=== PATIENT | female | born 1960 | race Caucasian/White ===

== ENCOUNTER 2016-05-05 16:12 | Emergency (ER) | payer OTHER ==
[2016-05-05 16:34] VITALS: BP 189/86
--- NOTE | 2016-05-05 16:57 | PHYS DOC ---
Past Medical History Past Medical History: Other Additional Past Medical Histor: ITP,IC Past Surgical History: Cholecystectomy, Hysterectomy, Tonsillectomy Alcohol Use: None Drug Use: None Adult General Chief Complaint Chief Complaint: SHOULDER INJURY [facility] HPI Patient is a 56 year old female presents emergency room with complaint of right shoulder pain for 6 days. Patient reports that, although work this past Saturday, a metal sheet began to fall and she reached out to catch it. She states this causes her subsequent pain to her right shoulder.. Patient reports she is right-hand dominant. She denies any history of previous shoulder injuries. She denies any history of bone forming disorders. Review of Systems Review of Systems Constitutional: Denies fever or chills [] Eyes: Denies change in visual acuity, redness, or eye pain [] HENT: Denies nasal congestion or sore throat [] Respiratory: Denies cough or shortness of breath [] Cardiovascular: No additional information not addressed in HPI [] GI: Denies abdominal pain, nausea, vomiting, bloody stools or diarrhea [] : Denies dysuria or hematuria [] Musculoskeletal: Denies back pain or joint pain [] Integument: Denies rash or skin lesions [] Neurologic: Denies headache, focal weakness or sensory changes [] Endocrine: Denies polyuria or polydipsia [] Allergies Allergies Allergies Coded Allergies Type Severity Reaction Last Updated Verified aspirin Allergy Intermediate ITP 05/05/16 Yes tolterodine Allergy Intermediate rash 05/05/16 Yes Sulfa (Sulfonamide Antibiotics) Adverse Reaction Mild diarrhea 05/05/16 Yes Tetracyclines Adverse Reaction Mild diarrhea 05/05/16 Yes codeine Adverse Reaction Mild vomiting 05/05/16 Yes erythromycin base Adverse Reaction Mild diarrhea 05/05/16 Yes floxacillin Adverse Reaction Mild abd pain 05/05/16 Yes fluconazole Adverse Reaction Mild abd pain 05/05/16 Yes Physical Exam Physical Exam Constitutional: Well developed, well nourished, no acute distress, non-toxic appearance. [] HENT: Normocephalic, atraumatic, bilateral external ears normal, oropharynx moist, no oral exudates, nose normal. [] Eyes: PERRLA, EOMI, conjunctiva normal, no discharge. [] Neck: Normal range of motion, no tenderness, supple, no stridor. [] Cardiovascular:Heart rate regular rhythm, no murmur [] Lungs & Thorax: Bilateral breath sounds clear to auscultation [] Abdomen: Bowel sounds normal, soft, no tenderness, no masses, no pulsatile masses. [] Skin: Warm, dry, no erythema, no rash. [] Back: No tenderness, no CVA tenderness. [] Extremities: Shoulder is without any obvious deformity or signs of injury. There is tender to palpation to the AC joint without palpable defect, deformity , instability or crepitus. There is also tenderness to palpation to the anterior lateral aspect of the shoulder in the deltoid muscles without palpable defect, deformity, instability or crepitus. Patient winces in pain with passive range of motion performed. There is no crepitation upon range of motion. Right upper extremity is neurovascularly intact with capillary refill less than 2 seconds. Neurologic: Alert and oriented X 3, normal motor function, normal sensory function, no focal deficits noted. [] Psychologic: Affect normal, judgement normal, mood normal. [] Current Patient Data Vital Signs Vital Signs Date Time Temp Pulse Resp B/P Pulse Ox O2 Delivery O2 Flow Rate FiO2 05/05/16 16:34 97.6 75 20 97 Room Air 97.6 EKG EKG [] Radiology/Procedures Radiology/Procedures 3 views of patient's right shoulder performed with adequate technique. There is evidence of a second-degree before meals separation. There is no evidence of fracture or dislocation. Course & Med Decision Making Course & Med Decision Making Pertinent Labs and Imaging studies reviewed. (See chart for details) [] Dragon Disclaimer Dragon Disclaimer This electronic medical record was generated, in whole or in part, using a voice recognition dictation system. Departure Departure Impression: Primary Impression: AC separation, type 2 Disposition: 01 HOME, SELF-CARE Condition: GOOD Patient Instructions: Arm Sling Use, [id number], Shoulder Separation Additional Instructions: 1. The x-rays of your shoulder show no evidence of broken bone or dislocation. 2. Review the discharge instructions provided for self-care and reasons to return to the emergency department. 3. Be sure to call Workmen's Comp. Saturday morning to schedule follow-up appointment. You will also want to talk to your employer. 4. Take the medication as prescribed. 5. Perform the arm rotations and rowing exercises 3 times a day as discussed. Scripts Hydrocodone/Apap 5-325 (Dalzell 5-325 Tablet)1 Each Tablet1 Tab PO PRN Q6HRS PRN PAIN #15 TAB Prov:DANILO PALACIOS 05/05/16 Problem Qualifiers Primary Impression: AC separation, type 2 Encounter type: initial encounter Laterality: right Qualified Code: S43.101A - Unspecified dislocation of right acromioclavicular joint, initial encounter DANILO PALACIOS May 05, 2016 16:57
[2016-05-05] MEDS ORDERED: HYDR-971 PO (17:37)
--- NOTE | 2016-05-09 13:39 | RAD ---
Right shoulder radiographs History: Pain after lifting injury 6 days ago. Comparison: None. Findings: AP internal rotation, AP external rotation, scapular Y-view of the right shoulder. No acute fracture is identified. The undersurface of the distal clavicle is noted to be superior to the superior surface of the acromion, compatible with type 3 AC dislocation. Mild glenohumeral degeneration is seen. Impression: Type III AC dislocation.
== END 2016-05-05 17:56 | disposition home or self-care (01) ==
LOC: ER 16:12
DX: S43.101A Unspecified dislocation of right acromioclavicular joint, initial encounter (principal); D69.3 Immune thrombocytopenic purpura; Z88.0 Allergy status to penicillin; Z88.2 Allergy status to sulfonamides; Z88.6 Allergy status to analgesic agent; Z88.1 Allergy status to other antibiotic agents; Z88.8 Allergy status to other drugs, medicaments and biological substances; W19.XXXA Unspecified fall, initial encounter; Y93.89 Activity, other specified; Y99.8 Other external cause status; Y92.89 Other specified places as the place of occurrence of the external cause
CPT/HCPCS: 73030; 99284

== ENCOUNTER 2016-11-09 10:33 | Inpatient (IN) | payer BC, OTHER ==
[~2016-11-09] VITALS: Ht 167.6 cm; Wt 83.0 kg
[~2016-11-09 10:33] MED LIST: HYDR-971 PO
[2016-11-09 11:00] LABS: BASO # 0.1 x10^3/uL (0.0-0.2); BASO % 1 % (0-3); EOS % 2 % (0-3); HEMATOCRIT 37.5 % (36.0-47.0); HEMOGLOBIN 12.5 g/dL (12.0-15.5); LYMPH # 2.1 x10^3/uL (1.0-4.8); LYMPH % 32 % (24-48); MEAN CORPUSCULAR HEMOGLOBIN 29 pg (25-35); MEAN CORPUSCULAR HGB CONC 33 g/dL (31-37); MEAN CORPUSCULAR VOLUME 87 fL (79-100); MONO % 9 % (0-9); NEUT % 56 % (31-73); PLATELET COUNT 130 x10^3/uL (140-400); RED BLOOD COUNT 4.32 x10^6/uL (3.50-5.40); RED CELL DISTRIBUTION WIDTH 13.5 % (11.5-14.5); WHITE BLOOD COUNT 6.6 x10^3/uL (4.0-11.0)
[2016-11-09] MEDS ORDERED: ASPIRIN CHEWABLE 81 MG TABLET. PO ONE (11:00)
--- NOTE | 2016-11-09 11:00 | PHYS DOC ---
Past Medical History Past Medical History: Other Additional Past Medical Histor: ITP,IC Past Surgical History: Cholecystectomy, Hysterectomy, Tonsillectomy Alcohol Use: None Drug Use: None Adult General Chief Complaint Chief Complaint: CHEST PAIN HPI HPI Patient is a 56 year old female presents to the emergency department with a history of chest pressure and tightness that started while she was at work today. Patient states she felt like her heart was fluttering. Patient states she has a history of HTN and had a BP med change in which she started today. 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 Patient does have nausea denies vomiting. Patient has a hx of ITP. Review of Systems Review of Systems Constitutional: Denies fever or chills [] Eyes: Denies change in visual acuity, redness, or eye pain [] HENT: Denies nasal congestion or sore throat [] Respiratory: Denies cough or shortness of breath [] Cardiovascular: No additional information not addressed in HPI [] GI: Denies abdominal pain, nausea, vomiting, bloody stools or diarrhea [] : Denies dysuria or hematuria [] Musculoskeletal: Denies back pain or joint pain [] Integument: Denies rash or skin lesions [] Neurologic: Denies headache, focal weakness or sensory changes [] Endocrine: Denies polyuria or polydipsia [] Current Medications Current Medications Allergies Allergies Allergies Coded Allergies Type Severity Reaction Last Updated Verified aspirin Allergy Intermediate ITP 05/05/16 Yes tolterodine Allergy Intermediate rash 05/05/16 Yes Sulfa (Sulfonamide Antibiotics) Adverse Reaction Mild diarrhea 05/05/16 Yes Tetracyclines Adverse Reaction Mild diarrhea 05/05/16 Yes codeine Adverse Reaction Mild vomiting 05/05/16 Yes erythromycin base Adverse Reaction Mild diarrhea 05/05/16 Yes floxacillin Adverse Reaction Mild abd pain 05/05/16 Yes fluconazole Adverse Reaction Mild abd pain 05/05/16 Yes Physical Exam Physical Exam Constitutional: Well developed, well nourished, no acute distress, non-toxic appearance. [] HENT: Normocephalic, atraumatic, bilateral external ears normal, oropharynx moist, no oral exudates, nose normal. [] Eyes: PERRLA, EOMI, conjunctiva normal, no discharge. [] Neck: Normal range of motion, no tenderness, supple, no stridor. [] Cardiovascular:Heart rate regular rhythm, no murmur [] Lungs & Thorax: Bilateral breath sounds clear to auscultation [] Skin: Warm, dry, no erythema, no rash. [] Back: No tenderness Extremities: No tenderness, no cyanosis, no clubbing, ROM intact, no edema. [] Neurologic: Alert and oriented X 3, normal motor function, normal sensory function, no focal deficits noted. [] Psychologic: Affect normal, judgement normal, mood normal. [] Current Patient Data Vital Signs Vital Signs Date Time Temp Pulse Resp B/P (MAP) Pulse Ox O2 Delivery O2 Flow Rate FiO2 11/09/16 10:41 98.0 65 12 179/108 (131) 100 Room Air 98.0 Lab Values Laboratory Tests Test 11/09/16 10:50 White Blood Count 6.6 x10^3/uL (4.0-11.0) Red Blood Count 4.32 x10^6/uL (3.50-5.40) Hemoglobin 12.5 g/dL (12.0-15.5) Hematocrit 37.5 % (36.0-47.0) Mean Corpuscular Volume 87 fL (79-100) Mean Corpuscular Hemoglobin 29 pg (25-35) Mean Corpuscular Hemoglobin Concent 33 g/dL (31-37) Red Cell Distribution Width 13.5 % (11.5-14.5) Platelet Count 130 x10^3/uL (140-400) L Neutrophils (%) (Auto) 56 % (31-73) Lymphocytes (%) (Auto) 32 % (24-48) Monocytes (%) (Auto) 9 % (0-9) Eosinophils (%) (Auto) 2 % (0-3) Basophils (%) (Auto) 1 % (0-3) Neutrophils # (Auto) 3.7 x10^3uL (1.8-7.7) Lymphocytes # (Auto) 2.1 x10^3/uL (1.0-4.8) Monocytes # (Auto) 0.6 x10^3/uL (0.0-1.1) Eosinophils # (Auto) 0.2 x10^3/uL (0.0-0.7) Basophils # (Auto) 0.1 x10^3/uL (0.0-0.2) Sodium Level 143 mmol/L (136-145) Potassium Level 4.2 mmol/L (3.5-5.1) Chloride Level 105 mmol/L (98-107) Carbon Dioxide Level 30 mmol/L (21-32) Anion Gap 8 (6-14) Blood Urea Nitrogen 17 mg/dL (7-20) Creatinine 0.7 mg/dL (0.6-1.0) Estimated GFR (Cockcroft-Gault) 86.6 BUN/Creatinine Ratio 24 (6-20) H Glucose Level 102 mg/dL (70-99) H Calcium Level 8.8 mg/dL (8.5-10.1) Total Bilirubin 0.3 mg/dL (0.2-1.0) Aspartate Amino Transferase (AST) 17 U/L (15-37) Alanine Aminotransferase (ALT) 22 U/L (14-59) Alkaline Phosphatase 99 U/L (46-116) Troponin I Quantitative < 0.017 ng/mL (0.000-0.055) Total Protein 7.2 g/dL (6.4-8.2) Albumin 3.9 g/dL (3.4-5.0) Albumin/Globulin Ratio 1.2 (1.0-1.7) Laboratory Tests 11/09/16 10:50 Laboratory Tests 11/09/16 10:50 EKG EKG EKG completed at 1037 with SR noted HR [address] Rivera[] Radiology/Procedures Radiology/Procedures [][facility] [address] [place] [address] IMAGING REPORT Signed PATIENT: YANELY RAMIREZ ACCOUNT: [id number] : 1960 LOCATION: ER AGE: 56 SEX: F EXAM STATUS: REG ER ORD. PHYSICIAN: EULALIA RUBIO APRN REASON: chest pain PROCEDURE: PORTABLE CHEST 1V INDICATION: chest pain COMPARISON: None. FINDINGS: Single view of chest obtained. No focal airspace consolidation. Mediastinal contour is mildly prominent in size but could be from portable technique. No gross osseous destructive lesion. IMPRESSION: No focal airspace consolidation or edema. DICTATED and SIGNED BY: VIOLA CAVAZOS MD DATE: 11/09/16 [id number] CC: EULALIA RUBIO APRN; CRISTINA CHAHAL ~ Course & Med Decision Making Course & Med Decision Making Pertinent Labs and Imaging studies reviewed. (See chart for details) Spoke with Dr. Arsh beverly in regards to the patient's troponin being normal CBC and chemistries normal EKG and chest x-ray normal. He is requesting a CTA of the chest to rule out a PE. He has also agreed for admission for serial troponins. Patient will also have a cardiology consult. Patient was provided with information as to being admitted into the hospital with a cardiology consult. Patient agrees with treatment regimens at this time. Patient refuses to have CTA of chest since it causes problems with her IC Dr Birmingham notified and agrees with VQ scan. Patient is aware of admission and agrees at this time. [] Dragon Disclaimer Dragon Disclaimer This electronic medical record was generated, in whole or in part, using a voice recognition dictation system. Departure Departure Impression: Primary Impression: Chest pain Disposition: ADMITTED INPATIENT Admitting Physician: Leo Birmingham Condition: STABLE Referrals: CRISTINA CHAHAL (PCP) EULALIA RUBIO APRN Nov 09, 2016 10:59
[2016-11-09] MEDS: NITROGLYCERIN SUBLINGUAL 0.4 MG BOTTLE OF 25. SL PRN ×2 (11:02→11:32)
[2016-11-09 11:13] LABS: CALCIUM 8.8 mg/dL (8.5-10.1); CREATININE 0.7 mg/dL (0.6-1.0); GFR 86.6; POTASSIUM 4.2 mmol/L (3.5-5.1)
[2016-11-09 11:19] LABS: ALBUMIN 3.9 g/dL (3.4-5.0); ALBUMIN/GLOBULIN RATIO 1.2 (1.0-1.7); TOTAL BILIRUBIN 0.3 mg/dL (0.2-1.0); TOTAL PROTEIN 7.2 g/dL (6.4-8.2)
--- NOTE | 2016-11-09 11:36 | RAD ---
INDICATION: chest pain COMPARISON: None. FINDINGS: Single view of chest obtained. No focal airspace consolidation. Mediastinal contour is mildly prominent in size but could be from portable technique. No gross osseous destructive lesion. IMPRESSION: No focal airspace consolidation or edema.
[2016-11-09] MEDS ORDERED: IOHEXOL 300 MG/ML 75 ML VIAL IV ONE (12:00)
[2016-11-09] MEDS ORDERED: CONTRAST GIVEN MC PRN (12:15)
[2016-11-09] MEDS ORDERED: NITROGLYCERIN SUBLINGUAL 0.4 MG BOTTLE OF 25. SL PRN (12:15)
[2016-11-09] MEDS ORDERED: fentaNYL PF VIAL 100 MCG/2 ML VIAL IV PRN (12:15)
--- NOTE | 2016-11-09 12:34 | ACF ---
Admit Criteria Forms Admit Criteria Forms Admit Criteria Forms CARDIOLOGY GRG Clinical Indications for Admission to Inpatient Care ( Place 'X' for any and all applicable criteria): Hospital admission is needed for appropriate care of the patient because of ANY ONE of the following (1): [ ] I. Hemodynamic instability as indicated by ALL of the following (1)(2)(3) (4)(5) [ ]a) Vital signs or other findings not as expected for chronic patient condition or baseline [ ]b) Instability indicated by ANY ONE of the following: [ ]i) Hypotension [ ]ii) Symptomatic Tachycardia unresponsive to treatment ( e.g., analgesia, fluids, sedation as indicated) [ ]iii) Inadequate perfusion indicated by ANY ONE of the following: [ ] 1) Lactic acidosis (> 2 mmol/L) [ ] 2) New abnormal capillary refill (> 3 seconds) [ ] 3) Reduced urine output [ ] 4) New altered mental status [ ]iv) Orthostatic vital sign changes unresponsive to treatment (e.g., fluids) [ ]v) IV inotropic or vasopressor medication required to maintain adequate blood pressure or perfusion [ ] II. Severe heart failure as indicated by ANY ONE of the following(17)(18) [ ]a) Respiratory distress [ ]b) Hypotension [ ]c) Anasarca (refractory to outpatient therapy) [ ]d) Cardiac arrhythmias of immediate concern [ ]e) Myocardial ischemia [ ] III. Cardiac arrhythmias or findings of immediate concern indicated by ANY ONE of the following (19)(20): [ ] a) Heart rhythms that are inherently dangerous or unstable indicated by ANY ONE of the following (21)(22)(23): [ ] i) Resuscitated ventricular fibrillation or cardiac arrest [ ] ii) Ventricular escape rhythm [ ] iii) Sustained ventricular tachycardia (30 seconds or more of ventricular rhythm at greater than 100 beats per minute) [ ] iv) Nonsustained ventricular tachycardia and ANY ONE of the following: [ ] 1) Suspected cardiac ischemia as cause or consequence of ventricular tachycardia [ ] 2) In setting of acute myocarditis [ ] b) Unstable cardiac conduction defects indicated by ANY ONE of the following(23)(24)(25) [ ] i) Type II second-degree atrioventricular block [ ]ii) Third-degree atrioventricular block [ ]iii) New-onset left bundle branch block with suspected myocardial ischemia [ ]c) Any heart rhythm and ANY ONE of the following (21)(22)(26)(27) (28) [ ] i) Continuous long-term ECG monitoring needed (e.g., initiation of drug requiring monitoring for more than 24 hours) [ ] ii) Patient has automatic implanted cardioverter defibrillator that is repeatedly firing, malfunctioning, or in need of immediate adjustment of settings beyond the scope of ambulatory or observation care [ ]d) Heart rhythms of concern due to ANY ONE of the following: [ ] i) Hypotension [ ] ii) Respiratory distress [ ] iii) Association with other significant symptoms (e.g., bradycardia with syncope or ongoing dizziness, supraventricular tachycardia with chest pain (14)(15)(17) [ ] IV. Monitoring for cardiac contusion beyond the scope of observation care needed [A](30)(31)(32) [ ] V. Surgical or device complication (e.g., valve replacement complication , pacemaker dysfunction) (35)(41)(44)(45)(46) [ ] . Inpatient palliative care needed. [B](49) Also use Inpatient Palliative Care Criteria [ ] VII. Nonbacterial thrombotic (marantic) endocarditis (36)(43)(47)(48) [X ] VIII. Cardiology condition, symptom, or finding for which emergency and observation care has failed or are not considered appropriate. [ ] IX. Acute valvular disease requiring inpatient as indicated by ANY ONE of the following (41) [ ]a) Acute valvular regurgitation (42) [ ]b) Noninfectious valvulitis (43) [ ]c) Obstructive valve thrombosis [ ]d) Paravalvular leak [ ]e) Other significant valvular disorder remaining after emergency or observation level of care (as appropriate) [ ]X. Pericardial disease requiring inpatient treatment as indicated by ANY ONE of the following (33)(34)(35)(36)(37) [ ]a) Suspected tamponade (38)(39)(40) [ ]b) Hemopericardium [ ]c) Other significant pericardial disorder remaining after emergency or observation level of care (as appropriate) [ ] XI. Cardiac ischemia beyond scope of emergency and observation care. [ ] XII. Hypertension requiring inpatient treatment as indicated by ANY ONE of the following (6)(7)(8) [ ]a) SBP greater than 220 mm Hg or DBP greater than 120 mmHg despite treatment [ ]b) SBP greater than 140 mm Hg or DBP greater than 100 mm Hg with evidence of acute end organ damage as indicated by ANY ONE of the following [ ] i) Encephalopathy [ ] ii) Acute renal failure as indicated by new onset of ANY ONE of the following (9)(10)(11)(12)(13) [ ]1) 3-fold rise in serum creatinine from baseline [ ]2) Serum creatinine greater than 4 mg/dL ( 354 micromoles/L) with acute rise greater than 0.5 mg/dL (44.2 micromoles/L) [ ]3) Reduction of more than 75% in estimated glomerular filtration rate from baseline [ ]4) Estimated glomerular filtration rate less than 35 mL/min/1.73m2 (0.59 mL/sec/1.73m2) in child up to 18 years of age [ ]5) Cessation of urine output indicated by ALL of the following [ ]A. Adequate volume status [ ]B. Inadequate urine output as indicated by ANY ONE of the following [ ]a. Urine output less than 0.3 mL/kg/hr for 24 hours [ ]b. Anuria (urine output less than 0.1 mL/kg/hr) for 12 hours [ ] iii) Aortic dissection [ ] iv) Myocardial Ischemia [ ] v) Left ventricular heart failure [ ]vi) Retinal Hemorrhage [ ]vii) Other significant finding [ ]c) Hypertension in child requiring inpatient treatment as indicated by ALL of the following(14)(15)(16) [ ] i) Outpatient treatment not effective, not available, or not appropriate [ ]ii) SBP or DBP greater than 95th percentile for age [ ]iii) Evidence of acute end organ damage as indicated by ANY ONE of the following [ ]1) Altered mental status [ ]2) Acute renal failure as indicated by new onset of ANY ONE of the following(9)(10)(11)(12)(13) [ ]A. 3-fold rise in serum creatinine from baseline [ ]B. Serum creatinine greater than 4 mg/dL (354 micromoles/L) with acute rise greater than 0.5 mg/dL (44.2 micromoles/L) [ ]C. Reduction of more than 75% in estimated glomerular filtration rate from baseline [ ]D. Estimated glomerular filtration rate less than 35 mL/min/1.73m2 (0.59 mL/sec/1.73m2) in child up to 18 years of age [ ]E. Cessation of urine output indicated by ALL of the following [ ]a. Adequate volume status [ ]b. Inadequate urine output as indicated by ANY ONE of the following [ ]i) Urine output less than 0.3 mL/kg/hr for 24 hours [ ]ii) Anuria ( urine output less than 0.1 mL/kg/hr) for 12 hours [ ]3) Severe headache [ ]4) Visual disturbance [ ]5) Retinal hemorrhage [ ]6) Other significant finding [ ]XIII. Complications of transplanted heart indicated by ANY ONE of the following(61): [ ]a) Acute graft rejection requiring inpatient management (eg, intravenous immunosuppression)(62)(63) [ ]b) Acute graft heart failure indicated by ANY ONE of the following(64): [ ]i) Hemodynamic instability [ ]ii) Cardiac arrhythmias of immediate concern [ ]iii) Pulmonary edema that is very severe (eg, mechanical ventilation needed, imminent or likely, need for 100% oxygen to keep oxygen saturation above 90%) [ ]iv) Pulmonary edema that is persistent as indicated by ALL of the following: [ ]1) New need for oxygen therapy to keep oxygen saturation above 90% (or increased FiO2 need from baseline) [ ]2) Has not improved sufficiently with emergency department or observation care IV diuretics or other heart failure treatments[E] [ ]v) Altered mental status that is severe or persistent [ ]vi) Increased creatinine (new on laboratory test) with reduction of more than 50% in estimated glomerular filtration rate from baseline [ ]vii) Progressively (ongoing) rising creatinine (known from past laboratory test) with reduction of more than 25% in estimated glomerular filtration rate from baseline [ ]viii) Acute renal failure [ ]ix) Acute peripheral ischemia (eg, examination shows pulseless, cool, mottled, or cyanotic extremity) [ ]x) Pulmonary artery catheter monitoring needed [ ]xi) Other sign or symptom of heart failure requiring inpatient treatment (ie, too severe or not responsive to outpatient and observation care treatment) [ ]c) Infection requiring inpatient management (eg, Hemodynamic instability, need for intravenous antimicrobial treatment)(66)(67)(68)(69)(70) [ ]d) Cardiac allograft vasculopathy requiring inpatient management ( eg evidence of cardiac ischemia)(71) [ ]e) Other complication of transplanted heart (eg, stroke, severe pulmonary hypertension, severe valvular dysfunction) requiring inpatient management(72) The original [employer] content created by [facility] has been revised. The portions of the content which have been revised are identified through the use of italic text or in bold, and [facility] [employer] has neither reviewed nor approved the modified material. All other unmodified content is copyright [employer] [facility]. Please see references footnoted in the original [employer] [facility] edition 2016 MOLLY SARMIENTO Nov 09, 2016 12:34
[2016-11-09 13:20] VITALS: BP 174/78
--- NOTE | 2016-11-09 14:36 | PDOC2 ---
JEANETTEGREGORY LOPEZ MARGARET 11/09/16 1436: CARDIAC CONSULT DATE OF CONSULT Date of Consult DATE: 11/09/16 TIME: 14:32 REASON FOR CONSULT Reason for Consult: Chest Pain REFERRING PHYSICIAN Referring Physician: Lesa Wick APRN SOURCE Source: Chart review, Patient HISTORY OF PRESENT ILLNESS HISTORY OF PRESENT ILLNESS This is a 56 yo female who presented with complaints of chest pressure. Patient reports pain began this morning while at work. 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 Began to feel "jittery" and had tightness/heaviness in her central chest. [place] nauseated. Hand tingling/numbness in bilateral hands. Slight fluttering in chest. Denies any SOA, dizziness, or diaphoresis. No worsening or relieving factors. Recently diagnosed with hypertension. Started on lisinopril; had persisted cough. Medications stopped 2 days ago. Started on Norvasc; first dose this morning. Has appointment with [facility] next Saturday to establish care. Pressure in chest still present; although much improved from earlier today. PAST MEDICAL HISTORY Cardiovascular: HTN Pulmonary: No pertinent hx GI: No pertinent hx Heme/Onc: No pertinent hx, Other (idiopathic thrombocytopenia purpura) Hepatobiliary: No pertinent hx Psych: Anxiety Rheumatologic: No pertinent hx Infectious disease: No pertinent hx ENT: No pertinent hx Renal/: Other (interstitial cystitis ) Endocrine: No pertinent hx Dermatology: No pertinent hx PAST SURGICAL HISTORY Past Surgical History: Hysterectomy FAMILY HISTORY Family History: Adopted SOCIAL HISTORY Smoke: No ALCOHOL: none Drugs: None Lives: Alone CURRENT MEDICATIONS CURRENT MEDICATIONS Current Medications Medications (Trade) Dose Ordered Sig/Ky Route PRN Reason Start Time Stop Time Status Last Admin Dose Admin Nitroglycerin (Nitrostat) 0.4 mg PRN Q5MIN PRN SL CHEST PAIN 11/09/16 11:00 11/09/16 11:32 Aspirin (Children'S Aspirin) 81 mg 1X ONCE PO 11/09/16 11:00 11/09/16 11:01 DC 11/09/16 11:01 ALLERGIES ALLERGIES: Coded Allergies: aspirin (Verified Allergy, Intermediate, ITP, 05/05/16) tolterodine (Verified Allergy, Intermediate, rash, 05/05/16) Sulfa (Sulfonamide Antibiotics) (Verified Adverse Reaction, Mild, diarrhea , 05/05/16) Tetracyclines (Verified Adverse Reaction, Mild, diarrhea, 05/05/16) codeine (Verified Adverse Reaction, Mild, vomiting, 05/05/16) erythromycin base (Verified Adverse Reaction, Mild, diarrhea, 05/05/16) floxacillin (Verified Adverse Reaction, Mild, abd pain, 05/05/16) fluconazole (Verified Adverse Reaction, Mild, abd pain, 05/05/16) lisinopril (Verified Adverse Reaction, Mild, 11/09/16) cough ROS Review of System 14 point ROS conducted with pertinent positives noted above in HPI. PHYSICAL EXAM General: Alert, Oriented X3, Cooperative, No acute distress HEENT: Atraumatic, Mucous membr. moist/pink Lungs: Normal air movement Heart: Regular rate, Normal S1, Normal S2, No murmurs Abdomen: Soft, No tenderness Extremities: No edema, Normal pulses Skin: No breakdown, No significant lesion Neuro: Normal speech, Sensation intact Psych/Mental Status: Mental status NL, Other (anxious ) VITALS VITALS Vital Signs Date Time Temp Pulse Resp B/P (MAP) Pulse Ox O2 Delivery O2 Flow Rate FiO2 11/09/16 13:20 98.0 55 18 174/78 (110) 98 Room Air 98.0 LABS Lab: Laboratory Tests Test 11/09/16 10:50 White Blood Count 6.6 x10^3/uL (4.0-11.0) Red Blood Count 4.32 x10^6/uL (3.50-5.40) Hemoglobin 12.5 g/dL (12.0-15.5) Hematocrit 37.5 % (36.0-47.0) Mean Corpuscular Volume 87 fL (79-100) Mean Corpuscular Hemoglobin 29 pg (25-35) Mean Corpuscular Hemoglobin Concent 33 g/dL (31-37) Red Cell Distribution Width 13.5 % (11.5-14.5) Platelet Count 130 x10^3/uL (140-400) Neutrophils (%) (Auto) 56 % (31-73) Lymphocytes (%) (Auto) 32 % (24-48) Monocytes (%) (Auto) 9 % (0-9) Eosinophils (%) (Auto) 2 % (0-3) Basophils (%) (Auto) 1 % (0-3) Neutrophils # (Auto) 3.7 x10^3uL (1.8-7.7) Lymphocytes # (Auto) 2.1 x10^3/uL (1.0-4.8) Monocytes # (Auto) 0.6 x10^3/uL (0.0-1.1) Eosinophils # (Auto) 0.2 x10^3/uL (0.0-0.7) Basophils # (Auto) 0.1 x10^3/uL (0.0-0.2) Sodium Level 143 mmol/L (136-145) Potassium Level 4.2 mmol/L (3.5-5.1) Chloride Level 105 mmol/L (98-107) Carbon Dioxide Level 30 mmol/L (21-32) Anion Gap 8 (6-14) Blood Urea Nitrogen 17 mg/dL (7-20) Creatinine 0.7 mg/dL (0.6-1.0) Estimated GFR (Cockcroft-Gault) 86.6 BUN/Creatinine Ratio 24 (6-20) Glucose Level 102 mg/dL (70-99) Calcium Level 8.8 mg/dL (8.5-10.1) Total Bilirubin 0.3 mg/dL (0.2-1.0) Aspartate Amino Transf (AST/SGOT) 17 U/L (15-37) Alanine Aminotransferase (ALT/SGPT) 22 U/L (14-59) Alkaline Phosphatase 99 U/L (46-116) Troponin I Quantitative < 0.017 ng/mL (0.000-0.055) Total Protein 7.2 g/dL (6.4-8.2) Albumin 3.9 g/dL (3.4-5.0) Albumin/Globulin Ratio 1.2 (1.0-1.7) ASSESSMENT/PLAN ASSESSMENT/PLAN 1. Chest pain, atypical 2 Malignant hypertension 3. Anxiety Recommendations Trend troponin check lipids Pressure likely related to combination of anxiety and significant blood pressure elevation, but with risk factor could consider MPI in am. Will d/w primary service center specialist. NPO p [place] Resume Norvasc. Will give extra dose now. Monitor to assess need for therapy titration Hydralazine PRN Problems: LYNDSEY FERGUSON MD 11/09/16 8549: CARDIAC CONSULT ALLERGIES ALLERGIES: Coded Allergies: aspirin (Verified Allergy, Intermediate, ITP, 05/05/16) tolterodine (Verified Allergy, Intermediate, rash, 05/05/16) Sulfa (Sulfonamide Antibiotics) (Verified Adverse Reaction, Mild, diarrhea , 05/05/16) Tetracyclines (Verified Adverse Reaction, Mild, diarrhea, 05/05/16) codeine (Verified Adverse Reaction, Mild, vomiting, 05/05/16) erythromycin base (Verified Adverse Reaction, Mild, diarrhea, 05/05/16) floxacillin (Verified Adverse Reaction, Mild, abd pain, 05/05/16) fluconazole (Verified Adverse Reaction, Mild, abd pain, 05/05/16) lisinopril (Verified Adverse Reaction, Mild, 11/09/16) cough ASSESSMENT/PLAN ASSESSMENT/PLAN Patient seen and examined. Agree with above nurse practitioner note. 56-year-old woman presenting with chest pressure in the setting of elevated blood pressure greater than 180 systolic. Normal cardiac exam. Given her age, family history and pain suggestive of cardiac origin we will obtain a myocardial perfusion study to rule out any significant pathology. Thank you for this consultation. Further recommendations pending stress testing. Problems: GREGORY REID APRN Nov 09, 2016 14:36 LYNDSEY FERGUSON MD Nov 09, 2016 18:19
--- NOTE | 2016-11-09 14:40 | RAD ---
Indication chest pain and tightness. A ventilation perfusion lung scan was performed. The study is correlated with a single view of the chest obtained the same day. There are to evaluate ventilation 8 mCi of xenon 133 was administered. To evaluate perfusion 6.3 mCi of technetium labeled MAA was administered. On the ventilation study no significant anomaly is seen. There is no significant air trapping. On the perfusion study no definite V/Q mismatch or significant profusion anomaly is apparent. The study is considered low probability for pulmonary embolus. IMPRESSION: Low probability VQ scan for pulmonary embolus
--- NOTE | 2016-11-09 15:25 | EKG ---
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
[2016-11-09 15:30] VITALS: BP 148/83
[2016-11-09] MEDS ORDERED: amLODIPine BESYLATE 5 MG TABLET PO ONE (16:00)
[2016-11-09] MEDS ORDERED: hydrALAZINE 20 MG/ML VIAL. IVP PRN ×2 (16:00→19:45)
[2016-11-09] MEDS ORDERED: ALPRAZolam 0.25 MG TABLET PO ONE (17:00)
[2016-11-09] MEDS ORDERED: VALERIAN ROOT 100 MG PO SCH (17:00)
[2016-11-09] MEDS ORDERED: DIPH25CA58 PO ×2 (17:03)
[2016-11-09] MEDS ORDERED: VALE100C PO (17:03)
[2016-11-09] MEDS ORDERED: AMLO5TAB2 PO (17:03)
[2016-11-09] MEDS ORDERED: OXYB5TAB7 PO (17:03)
[2016-11-09] MEDS ORDERED: METH1TAB2 PO (17:03)
[2016-11-09] MEDS ORDERED: GABA-586 PO (17:03)
[2016-11-09] MEDS ORDERED: TRAM50TA PO (17:03)
[2016-11-09] MEDS ORDERED: MELO15TA23 PO (17:03)
[2016-11-09] MEDS ORDERED: ACETAMINOPHEN 325 MG TABLET. PO PRN ×2 (18:45→19:45)
--- NOTE | 2016-11-09 19:29 | PDOC1 ---
History and Physical Past Medical History Cardiovascular: HTN Pulmonary: No pertinent hx GI: No pertinent hx Heme/Onc: No pertinent hx, Other (idiopathic thrombocytopenia purpura) Hepatobiliary: No pertinent hx Psych: Anxiety Rheumatologic: No pertinent hx Infectious disease: No pertinent hx ENT: No pertinent hx Renal/: Other (interstitial cystitis ) Endocrine: No pertinent hx Dermatology: No pertinent hx Past Surgical History Past Surgical History: Hysterectomy Family History Family History: Adopted Social History Smoke: No ALCOHOL: none Drugs: None Current Problem List Problem List Problems Medical Problems: (1) Chest pain Status: Acute Current Medications Current Medications Current Medications Medications (Trade) Dose Ordered Sig/Ky Start Time Stop Time Status Last Admin Dose Admin Acetaminophen (Tylenol) 650 mg PRN Q6HRS PRN 11/09/16 18:45 11/09/16 18:44 650 MG Alprazolam (Xanax) 0.25 mg 1X ONCE 11/09/16 17:00 11/09/16 17:01 DC 11/09/16 17:13 0.25 MG Amlodipine Besylate (Norvasc) 5 mg DAILY 11/10/16 09:00 UNV Aspirin (Children'S Aspirin) 81 mg 1X ONCE 11/09/16 11:00 11/09/16 11:01 DC 11/09/16 11:01 81 MG Diphenhydramine HCl (Benadryl) 25 mg DAILY 11/10/16 09:00 Fentanyl Citrate (Fentanyl 2ml Vial) 50 mcg PRN Q1HR PRN 11/09/16 12:15 11/10/16 12:14 Gabapentin (Neurontin) 300 mg QHS 11/09/16 21:00 Hydralazine HCl (Apresoline) 10 mg PRN Q4HRS PRN 11/09/16 16:00 Info (Do NOT chart on this entry -- for MONITORING) 1 each PRN DAILY PRN 11/09/16 12:15 11/11/16 12:14 Iohexol (Omnipaque 300 Mg/ml) 75 ml 1X ONCE 11/09/16 12:00 11/09/16 12:01 DC Meloxicam (Mobic) 15 mg DAILY 11/10/16 09:00 Nitroglycerin (Nitrostat) 0.4 mg PRN Q5MIN PRN 11/09/16 12:15 11/10/16 12:14 UNV Non-Formulary Medication 100 mg PRN 11/09/16 17:00 UNV Oxybutynin Chloride (Ditropan) 5 mg DAILY 11/10/16 09:00 Tramadol HCl (Ultram) 50 mg BID 11/09/16 21:00 Allergies Allergies Allergies Coded Allergies Type Severity Reaction Last Updated Verified aspirin Allergy Intermediate ITP 05/05/16 Yes tolterodine Allergy Intermediate rash 05/05/16 Yes Sulfa (Sulfonamide Antibiotics) Adverse Reaction Mild diarrhea 05/05/16 Yes Tetracyclines Adverse Reaction Mild diarrhea 05/05/16 Yes codeine Adverse Reaction Mild vomiting 05/05/16 Yes erythromycin base Adverse Reaction Mild diarrhea 05/05/16 Yes floxacillin Adverse Reaction Mild abd pain 05/05/16 Yes fluconazole Adverse Reaction Mild abd pain 05/05/16 Yes lisinopril Adverse Reaction Mild 11/09/16 Yes ROS Review of System CONSTITUTIONAL: No fever or chills EYES: No recent changes SKIN: No rash or itching CARDIOVASCULAR: No chest pain, syncope, palpitations, or edema RESPIRATORY: No SOB or cough GASTROINTESTINAL: No nausea, vomiting or abdominal pain NEUROLOGICAL: No headaches or weakness ENDOCRINE: No cold or heat intolerance GENITOURINARY: No urgency or frequency of urination MUSCULOSKELETAL: No back pain or joint pain LYMPHATICS: No enlarged lymph nodes PSYCHIATRIC: No anxiety or depression Physical Exam Physical Exam GEN.: No apparent distress. Alert and oriented. HEENT: Head is normocephalic, atraumatic NECK: Supple. LUNGS: Clear to auscultation. HEART: RRR, S1, S2 present. Peripheral pulses intact ABDOMEN: Soft, nontender. Positive bowel sounds. EXTREMITIES: Without any cyanosis. NEUROLOGIC: Normal speech, normal tone PSYCHIATRIC: Normal affect, normal mood. SKIN: No ulcerations Vitals Vitals Vital Signs Date Time Temp Pulse Resp B/P (MAP) Pulse Ox O2 Delivery O2 Flow Rate FiO2 11/09/16 17:14 63 148/83 11/09/16 15:30 97.9 18 97 Room Air 97.9 Labs Labs Laboratory Tests Test 11/09/16 10:50 White Blood Count 6.6 x10^3/uL (4.0-11.0) Red Blood Count 4.32 x10^6/uL (3.50-5.40) Hemoglobin 12.5 g/dL (12.0-15.5) Hematocrit 37.5 % (36.0-47.0) Mean Corpuscular Volume 87 fL (79-100) Mean Corpuscular Hemoglobin 29 pg (25-35) Mean Corpuscular Hemoglobin Concent 33 g/dL (31-37) Red Cell Distribution Width 13.5 % (11.5-14.5) Platelet Count 130 x10^3/uL (140-400) Neutrophils (%) (Auto) 56 % (31-73) Lymphocytes (%) (Auto) 32 % (24-48) Monocytes (%) (Auto) 9 % (0-9) Eosinophils (%) (Auto) 2 % (0-3) Basophils (%) (Auto) 1 % (0-3) Neutrophils # (Auto) 3.7 x10^3uL (1.8-7.7) Lymphocytes # (Auto) 2.1 x10^3/uL (1.0-4.8) Monocytes # (Auto) 0.6 x10^3/uL (0.0-1.1) Eosinophils # (Auto) 0.2 x10^3/uL (0.0-0.7) Basophils # (Auto) 0.1 x10^3/uL (0.0-0.2) Sodium Level 143 mmol/L (136-145) Potassium Level 4.2 mmol/L (3.5-5.1) Chloride Level 105 mmol/L (98-107) Carbon Dioxide Level 30 mmol/L (21-32) Anion Gap 8 (6-14) Blood Urea Nitrogen 17 mg/dL (7-20) Creatinine 0.7 mg/dL (0.6-1.0) Estimated GFR (Cockcroft-Gault) 86.6 BUN/Creatinine Ratio 24 (6-20) Glucose Level 102 mg/dL (70-99) Calcium Level 8.8 mg/dL (8.5-10.1) Total Bilirubin 0.3 mg/dL (0.2-1.0) Aspartate Amino Transf (AST/SGOT) 17 U/L (15-37) Alanine Aminotransferase (ALT/SGPT) 22 U/L (14-59) Alkaline Phosphatase 99 U/L (46-116) Troponin I Quantitative < 0.017 ng/mL (0.000-0.055) Total Protein 7.2 g/dL (6.4-8.2) Albumin 3.9 g/dL (3.4-5.0) Albumin/Globulin Ratio 1.2 (1.0-1.7) Thyroid Stimulating Hormone (TSH) 0.025 uIU/mL (0.358-3.74) Laboratory Tests Test 11/09/16 10:50 White Blood Count 6.6 x10^3/uL (4.0-11.0) Red Blood Count 4.32 x10^6/uL (3.50-5.40) Hemoglobin 12.5 g/dL (12.0-15.5) Hematocrit 37.5 % (36.0-47.0) Mean Corpuscular Volume 87 fL (79-100) Mean Corpuscular Hemoglobin 29 pg (25-35) Mean Corpuscular Hemoglobin Concent 33 g/dL (31-37) Red Cell Distribution Width 13.5 % (11.5-14.5) Platelet Count 130 x10^3/uL (140-400) Neutrophils (%) (Auto) 56 % (31-73) Lymphocytes (%) (Auto) 32 % (24-48) Monocytes (%) (Auto) 9 % (0-9) Eosinophils (%) (Auto) 2 % (0-3) Basophils (%) (Auto) 1 % (0-3) Neutrophils # (Auto) 3.7 x10^3uL (1.8-7.7) Lymphocytes # (Auto) 2.1 x10^3/uL (1.0-4.8) Monocytes # (Auto) 0.6 x10^3/uL (0.0-1.1) Eosinophils # (Auto) 0.2 x10^3/uL (0.0-0.7) Basophils # (Auto) 0.1 x10^3/uL (0.0-0.2) Sodium Level 143 mmol/L (136-145) Potassium Level 4.2 mmol/L (3.5-5.1) Chloride Level 105 mmol/L (98-107) Carbon Dioxide Level 30 mmol/L (21-32) Anion Gap 8 (6-14) Blood Urea Nitrogen 17 mg/dL (7-20) Creatinine 0.7 mg/dL (0.6-1.0) Estimated GFR (Cockcroft-Gault) 86.6 BUN/Creatinine Ratio 24 (6-20) Glucose Level 102 mg/dL (70-99) Calcium Level 8.8 mg/dL (8.5-10.1) Total Bilirubin 0.3 mg/dL (0.2-1.0) Aspartate Amino Transf (AST/SGOT) 17 U/L (15-37) Alanine Aminotransferase (ALT/SGPT) 22 U/L (14-59) Alkaline Phosphatase 99 U/L (46-116) Troponin I Quantitative < 0.017 ng/mL (0.000-0.055) Total Protein 7.2 g/dL (6.4-8.2) Albumin 3.9 g/dL (3.4-5.0) Albumin/Globulin Ratio 1.2 (1.0-1.7) Thyroid Stimulating Hormone (TSH) 0.025 uIU/mL (0.358-3.74) VTE Prophylaxis Ordered VTE Prophylaxis Devices: No VTE Pharmacological Prophylaxi: No ZAIRE PHAN MD Nov 09, 2016 19:29
[2016-11-09 19:35] VITALS: BP 140/89
[2016-11-09] MEDS ORDERED: ONDANSETRON PF 4 MG/2 ML VIAL. IV PRN (19:45)
[2016-11-09] MEDS ORDERED: ALBUTEROL SULFATE 2.5 MG/3 ML NEBU. NEB PRN (19:45)
[2016-11-09] MEDS: HYDROcodone/APAP 5/325MG 1 TAB TABLET PO PRN (20:06)
[2016-11-09] MEDS: GABAPENTIN 300 MG CAPSULE. PO SCH (20:06)
[2016-11-09] MEDS: traMADol 50 MG TABLET PO SCH (20:06)
[2016-11-09] MEDS ORDERED: [UNRECOGNIZED DRUG - OTHER] PO SCH (21:00)
[2016-11-09] MEDS ORDERED: METHENAMINE PO SCH (21:00)
[2016-11-09] MEDS: PENTOSAN POLYSULFATE SODIUM 100 MG CAPSULE. PO SCH (21:00)
[2016-11-09] MEDS ORDERED: SODIUM PHOSPHATE PO SCH (21:00)
[2016-11-09] MEDS ORDERED: HYOSCYAMINE PO SCH (21:00)
[2016-11-09] MEDS ORDERED: PHENYL SALICYLATE PO SCH (21:00)
--- NOTE | 2016-11-09 21:33 | HP ---
ADMIT DATE: 11/09/2016 TIME: 04:30 p.m. CHIEF COMPLAINT: Chest pressure. HISTORY OF PRESENT ILLNESS: A 56-year-old female patient with a recent diagnosis of hypertension, who presented to the ER with complaints of chest pressure. 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 This morning is more stressful at work. The patient felt jittery and went to pharmacy, who checked her blood pressure, which is significantly elevated. The patient continued to have chest pressure with tingling and numbness in the right upper extremity. Denies any nausea, vomiting, or any syncope. She was diagnosed with hypertension and started on lisinopril; however, the patient continued to have some cough, so recently, it was changed to amlodipine. At the time of my examination, the patient denies any chest pressure; however, the patient still has some tingling in the upper extremities, which is getting better with ____. PAST MEDICAL HISTORY: Hypertension, idiopathic thrombocytopenic purpura, and interstitial cystitis. PAST SURGICAL HISTORY: Hysterectomy. PERSONAL HISTORY: No smoking, no alcohol, and no drug abuse. FAMILY HISTORY: Unknown as the patient is adopted. ALLERGIES, REVIEW OF SYSTEMS, AND PHYSICAL EXAMINATION: Please see my electronic H and P. LABORATORY DATA: Chemistry within normal limits. First set of troponins is less than 0.01. TSH is 0.25. CBC within normal limits. IMAGING STUDIES: CT scan is negative for any PE. Chest x-ray personally reviewed, no acute findings seen. EKG: Normal sinus rhythm, no acute ST-T-wave changes noted. No prior EKGs present for comparison. ASSESSMENT: 1. Chest pressure, possible differentials ____ versus anxiety versus gastroesophageal reflux disease versus uncontrolled hypertension. 2. Uncontrolled hypertension. 3. Possible anxiety. PLAN: 1. P.r.n. Ativan for anxiety. 2. Cardiology consultation. 3. Two more sets of troponins. 4. Monitor the patient on telemetry floor. 5. As the patient tried nitroglycerin in the ER, which did not help her, rather she got headaches. 6. Echocardiogram or stress test. 7. Continue amlodipine. 8. Continue as-needed hydralazine for systolic blood pressure more than 180. Anticipated discharge based on the patient's symptoms and further Cardiology recommendations. Plan discussed with the patient, who agrees with the current plan. ZAIRE PHAN MD DR: Olga JOB#: [id number] / [id number]
[2016-11-09] MEDS ORDERED: PENTOSAN POLYSULFATE SODIUM 100 MG CAPSULE. PO ONE (22:00)
[2016-11-09 23:52] VITALS: BP 107/49
[2016-11-10 02:53] LABS: BASO # 0.1 x10^3/uL (0.0-0.2); BASO % 1 % (0-3); EOS % 4 % (0-3); HEMATOCRIT 36.5 % (36.0-47.0); HEMOGLOBIN 12.3 g/dL (12.0-15.5); LYMPH % 42 % (24-48); MEAN CORPUSCULAR HEMOGLOBIN 30 pg (25-35); MEAN CORPUSCULAR HGB CONC 34 g/dL (31-37); MEAN CORPUSCULAR VOLUME 88 fL (79-100); MONO % 9 % (0-9); NEUT % 44 % (31-73); PLATELET COUNT 137 x10^3/uL (140-400); RED BLOOD COUNT 4.16 x10^6/uL (3.50-5.40); RED CELL DISTRIBUTION WIDTH 13.5 % (11.5-14.5); WHITE BLOOD COUNT 7.2 x10^3/uL (4.0-11.0)
[2016-11-10 03:14] LABS: GFR 86.6
[2016-11-10 03:17] LABS: CREATININE 0.7 mg/dL (0.6-1.0); POTASSIUM 3.7 mmol/L (3.5-5.1)
[2016-11-10 03:40] VITALS: BP 136/85
[2016-11-10 03:41] LABS: CHOLESTEROL/HDL RATIO 3.3
[2016-11-10] MEDS: PENTOSAN POLYSULFATE SODIUM 100 MG CAPSULE. PO SCH ×3 (07:30→15:42)
[2016-11-10 07:45] VITALS: BP 150/82
[2016-11-10] MEDS ORDERED: amLODIPine BESYLATE 5 MG TABLET PO SCH (09:00)
[2016-11-10] MEDS: diphenhydrAMINE HCL 25 MG CAPSULE PO SCH (09:27)
[2016-11-10] MEDS: traMADol 50 MG TABLET PO SCH ×2 (09:27→21:14)
[2016-11-10] MEDS: OXYBUTYNIN CHLORIDE 5 MG TABLET PO SCH (09:28)
[2016-11-10] MEDS: amLODIPine BESYLATE 10 MG TABLET PO SCH (09:28)
[2016-11-10] MEDS: MELOXICAM 7.5 MG TABLET PO SCH (09:29)
[2016-11-10] MEDS ORDERED: OMEP20TA63 PO ×2 (09:42)
--- NOTE | 2016-11-10 09:59 | PDOC ---
CARDIO Progress Notes Date and Time Date of Service 11/10/2016 Time of Evaluation 0930 Subjective Subjective: No Chest Pain, No shortness of breath, No Palpitations, No Dizziness, Other (feels better overnight) Vitals Vitals Vital Signs Date Time Temp Pulse Resp B/P (MAP) Pulse Ox O2 Delivery O2 Flow Rate FiO2 11/10/16 09:28 59 150/82 11/10/16 09:27 98 Room Air 11/10/16 07:45 97.6 16 97.6 Weight Weight [ ] Input and Output Intake and Output Intake and Output 11/10/16 06:59 Intake Total 500 ml Balance 500 ml Intake Oral 500 ml # Voids 2 Laboratory Labs Laboratory Tests Test 11/09/16 10:50 11/09/16 18:35 11/10/16 02:20 White Blood Count 6.6 x10^3/uL (4.0-11.0) 7.2 x10^3/uL (4.0-11.0) Red Blood Count 4.32 x10^6/uL (3.50-5.40) 4.16 x10^6/uL (3.50-5.40) Hemoglobin 12.5 g/dL (12.0-15.5) 12.3 g/dL (12.0-15.5) Hematocrit 37.5 % (36.0-47.0) 36.5 % (36.0-47.0) Mean Corpuscular Volume 87 fL (79-100) 88 fL (79-100) Mean Corpuscular Hemoglobin 29 pg (25-35) 30 pg (25-35) Mean Corpuscular Hemoglobin Concent 33 g/dL (31-37) 34 g/dL (31-37) Red Cell Distribution Width 13.5 % (11.5-14.5) 13.5 % (11.5-14.5) Platelet Count 130 x10^3/uL (140-400) 137 x10^3/uL (140-400) Neutrophils (%) (Auto) 56 % (31-73) 44 % (31-73) Lymphocytes (%) (Auto) 32 % (24-48) 42 % (24-48) Monocytes (%) (Auto) 9 % (0-9) 9 % (0-9) Eosinophils (%) (Auto) 2 % (0-3) 4 % (0-3) Basophils (%) (Auto) 1 % (0-3) 1 % (0-3) Neutrophils # (Auto) 3.7 x10^3uL (1.8-7.7) 3.2 x10^3uL (1.8-7.7) Lymphocytes # (Auto) 2.1 x10^3/uL (1.0-4.8) 3.0 x10^3/uL (1.0-4.8) Monocytes # (Auto) 0.6 x10^3/uL (0.0-1.1) 0.7 x10^3/uL (0.0-1.1) Eosinophils # (Auto) 0.2 x10^3/uL (0.0-0.7) 0.3 x10^3/uL (0.0-0.7) Basophils # (Auto) 0.1 x10^3/uL (0.0-0.2) 0.1 x10^3/uL (0.0-0.2) Sodium Level 143 mmol/L (136-145) 144 mmol/L (136-145) Potassium Level 4.2 mmol/L (3.5-5.1) 3.7 mmol/L (3.5-5.1) Chloride Level 105 mmol/L (98-107) 106 mmol/L (98-107) Carbon Dioxide Level 30 mmol/L (21-32) 31 mmol/L (21-32) Anion Gap 8 (6-14) 7 (6-14) Blood Urea Nitrogen 17 mg/dL (7-20) 16 mg/dL (7-20) Creatinine 0.7 mg/dL (0.6-1.0) 0.7 mg/dL (0.6-1.0) Estimated GFR (Cockcroft-Gault) 86.6 86.6 BUN/Creatinine Ratio 24 (6-20) Glucose Level 102 mg/dL (70-99) 109 mg/dL (70-99) Calcium Level 8.8 mg/dL (8.5-10.1) 9.0 mg/dL (8.5-10.1) Total Bilirubin 0.3 mg/dL (0.2-1.0) Aspartate Amino Transf (AST/SGOT) 17 U/L (15-37) Alanine Aminotransferase (ALT/SGPT) 22 U/L (14-59) Alkaline Phosphatase 99 U/L (46-116) Troponin I Quantitative < 0.017 ng/mL (0.000-0.055) < 0.017 ng/mL (0.000-0.055) < 0.017 ng/mL (0.000-0.055) Total Protein 7.2 g/dL (6.4-8.2) Albumin 3.9 g/dL (3.4-5.0) Albumin/Globulin Ratio 1.2 (1.0-1.7) Thyroid Stimulating Hormone (TSH) 0.025 uIU/mL (0.358-3.74) Triglycerides Level 136 mg/dL (0-150) Cholesterol Level 223 mg/dL (0-200) LDL Cholesterol, Calculated 128 mg/dL (0-100) VLDL Cholesterol, Calculated 27 mg/dL (0-40) Non-HDL Cholesterol Calculated 155 mg/dL (0-129) HDL Cholesterol 68 mg/dL (40-60) Cholesterol/HDL Ratio 3.3 Physical Exam HEENT: Neck Supple W Full Motion Chest: Symmetric LUNGS: Clear to Auscultation Heart: S1S2, RRR (SR no significant ectopies) Abdomen: Soft N/T Extremities: No Edema, No Calf Tenderness Neurology: alert, oriented, follow commands Assessment Assessment 1. Atypical CP 2 Malignant hypertension: much better 3. Anxiety 4. Subclinical hyperthyroidism: Defer to PCP 5. HLP Recommendations 1. Continue with amlodipine. Llergy to ACEi. Start on lipitor if pt agrees 2. VQ low prob for PE. Unable to do MPI today due to the latter. Will proceed tomorrow. KYRA LEON [employer] LABORER Nov 10, 2016 09:58
[2016-11-10] MEDS: LORazepam 0.5 MG TABLET PO PRN ×2 (10:47→21:13)
[2016-11-10] MEDS: HYDROcodone/APAP 5/325MG 1 TAB TABLET PO PRN (10:47)
[2016-11-10] MEDS: PANTOPRAZOLE 40 MG TABLET.DR. PO SCH (10:48)
[2016-11-10 11:00] VITALS: BP 166/94
[2016-11-10] MEDS ORDERED: NON FORMULARY ITEM (Omeprazole Magnesium (Prilosec Otc) 20 MG) PO SCH (12:00)
--- NOTE | 2016-11-10 12:51 | PDOC ---
PROGRESS NOTES Chief Complaint Chief Complaint cc: chest pain A/P 1. Atypical CP 2 Uncontrolled ypertension: much better 3. Anxiety 4. Subclinical hyperthyroidism: 5. HLP Plan Free T4, US NECK STRESS TEST IN AM PRN XANAX LIPITOR MONITOR BP CONTINUE CURRENT CARE. LABS REVIEWED, D/W CARDIOLOGY Vitals Vitals Vital Signs Date Time Temp Pulse Resp B/P (MAP) Pulse Ox O2 Delivery O2 Flow Rate FiO2 11/10/16 11:49 94 Room Air 11/10/16 11:00 97.9 63 18 166/94 (118) 97.9 Physical Exam General: Alert, Oriented X3, Cooperative, No acute distress Heart: Regular rate, Normal S1, Normal S2, No murmurs Lungs: Clear Abdomen: Soft, No tenderness Extremities: No edema, Normal pulses Skin: No breakdown, No significant lesion Labs LABS Laboratory Tests Test 11/09/16 18:35 11/10/16 02:20 Troponin I Quantitative < 0.017 ng/mL (0.000-0.055) < 0.017 ng/mL (0.000-0.055) White Blood Count 7.2 x10^3/uL (4.0-11.0) Red Blood Count 4.16 x10^6/uL (3.50-5.40) Hemoglobin 12.3 g/dL (12.0-15.5) Hematocrit 36.5 % (36.0-47.0) Mean Corpuscular Volume 88 fL (79-100) Mean Corpuscular Hemoglobin 30 pg (25-35) Mean Corpuscular Hemoglobin Concent 34 g/dL (31-37) Red Cell Distribution Width 13.5 % (11.5-14.5) Platelet Count 137 x10^3/uL (140-400) Neutrophils (%) (Auto) 44 % (31-73) Lymphocytes (%) (Auto) 42 % (24-48) Monocytes (%) (Auto) 9 % (0-9) Eosinophils (%) (Auto) 4 % (0-3) Basophils (%) (Auto) 1 % (0-3) Neutrophils # (Auto) 3.2 x10^3uL (1.8-7.7) Lymphocytes # (Auto) 3.0 x10^3/uL (1.0-4.8) Monocytes # (Auto) 0.7 x10^3/uL (0.0-1.1) Eosinophils # (Auto) 0.3 x10^3/uL (0.0-0.7) Basophils # (Auto) 0.1 x10^3/uL (0.0-0.2) Sodium Level 144 mmol/L (136-145) Potassium Level 3.7 mmol/L (3.5-5.1) Chloride Level 106 mmol/L (98-107) Carbon Dioxide Level 31 mmol/L (21-32) Anion Gap 7 (6-14) Blood Urea Nitrogen 16 mg/dL (7-20) Creatinine 0.7 mg/dL (0.6-1.0) Estimated GFR (Cockcroft-Gault) 86.6 Glucose Level 109 mg/dL (70-99) Calcium Level 9.0 mg/dL (8.5-10.1) Triglycerides Level 136 mg/dL (0-150) Cholesterol Level 223 mg/dL (0-200) LDL Cholesterol, Calculated 128 mg/dL (0-100) VLDL Cholesterol, Calculated 27 mg/dL (0-40) Non-HDL Cholesterol Calculated 155 mg/dL (0-129) HDL Cholesterol 68 mg/dL (40-60) Cholesterol/HDL Ratio 3.3 Assessment and Plan Assessmemt and Plan Problems Medical Problems: (1) Chest pain Status: Acute Problems: Comment Review of Relevant I have reviewed the following items alfonzo (where applicable) has been applied. Labs Laboratory Tests Test 11/09/16 10:50 11/09/16 18:35 11/10/16 02:20 White Blood Count 6.6 x10^3/uL (4.0-11.0) 7.2 x10^3/uL (4.0-11.0) Red Blood Count 4.32 x10^6/uL (3.50-5.40) 4.16 x10^6/uL (3.50-5.40) Hemoglobin 12.5 g/dL (12.0-15.5) 12.3 g/dL (12.0-15.5) Hematocrit 37.5 % (36.0-47.0) 36.5 % (36.0-47.0) Mean Corpuscular Volume 87 fL (79-100) 88 fL (79-100) Mean Corpuscular Hemoglobin 29 pg (25-35) 30 pg (25-35) Mean Corpuscular Hemoglobin Concent 33 g/dL (31-37) 34 g/dL (31-37) Red Cell Distribution Width 13.5 % (11.5-14.5) 13.5 % (11.5-14.5) Platelet Count 130 x10^3/uL (140-400) 137 x10^3/uL (140-400) Neutrophils (%) (Auto) 56 % (31-73) 44 % (31-73) Lymphocytes (%) (Auto) 32 % (24-48) 42 % (24-48) Monocytes (%) (Auto) 9 % (0-9) 9 % (0-9) Eosinophils (%) (Auto) 2 % (0-3) 4 % (0-3) Basophils (%) (Auto) 1 % (0-3) 1 % (0-3) Neutrophils # (Auto) 3.7 x10^3uL (1.8-7.7) 3.2 x10^3uL (1.8-7.7) Lymphocytes # (Auto) 2.1 x10^3/uL (1.0-4.8) 3.0 x10^3/uL (1.0-4.8) Monocytes # (Auto) 0.6 x10^3/uL (0.0-1.1) 0.7 x10^3/uL (0.0-1.1) Eosinophils # (Auto) 0.2 x10^3/uL (0.0-0.7) 0.3 x10^3/uL (0.0-0.7) Basophils # (Auto) 0.1 x10^3/uL (0.0-0.2) 0.1 x10^3/uL (0.0-0.2) Sodium Level 143 mmol/L (136-145) 144 mmol/L (136-145) Potassium Level 4.2 mmol/L (3.5-5.1) 3.7 mmol/L (3.5-5.1) Chloride Level 105 mmol/L (98-107) 106 mmol/L (98-107) Carbon Dioxide Level 30 mmol/L (21-32) 31 mmol/L (21-32) Anion Gap 8 (6-14) 7 (6-14) Blood Urea Nitrogen 17 mg/dL (7-20) 16 mg/dL (7-20) Creatinine 0.7 mg/dL (0.6-1.0) 0.7 mg/dL (0.6-1.0) Estimated GFR (Cockcroft-Gault) 86.6 86.6 BUN/Creatinine Ratio 24 (6-20) Glucose Level 102 mg/dL (70-99) 109 mg/dL (70-99) Calcium Level 8.8 mg/dL (8.5-10.1) 9.0 mg/dL (8.5-10.1) Total Bilirubin 0.3 mg/dL (0.2-1.0) Aspartate Amino Transf (AST/SGOT) 17 U/L (15-37) Alanine Aminotransferase (ALT/SGPT) 22 U/L (14-59) Alkaline Phosphatase 99 U/L (46-116) Troponin I Quantitative < 0.017 ng/mL (0.000-0.055) < 0.017 ng/mL (0.000-0.055) < 0.017 ng/mL (0.000-0.055) Total Protein 7.2 g/dL (6.4-8.2) Albumin 3.9 g/dL (3.4-5.0) Albumin/Globulin Ratio 1.2 (1.0-1.7) Thyroid Stimulating Hormone (TSH) 0.025 uIU/mL (0.358-3.74) Triglycerides Level 136 mg/dL (0-150) Cholesterol Level 223 mg/dL (0-200) LDL Cholesterol, Calculated 128 mg/dL (0-100) VLDL Cholesterol, Calculated 27 mg/dL (0-40) Non-HDL Cholesterol Calculated 155 mg/dL (0-129) HDL Cholesterol 68 mg/dL (40-60) Cholesterol/HDL Ratio 3.3 Laboratory Tests Test 11/09/16 18:35 11/10/16 02:20 Troponin I Quantitative < 0.017 ng/mL (0.000-0.055) < 0.017 ng/mL (0.000-0.055) White Blood Count 7.2 x10^3/uL (4.0-11.0) Red Blood Count 4.16 x10^6/uL (3.50-5.40) Hemoglobin 12.3 g/dL (12.0-15.5) Hematocrit 36.5 % (36.0-47.0) Mean Corpuscular Volume 88 fL (79-100) Mean Corpuscular Hemoglobin 30 pg (25-35) Mean Corpuscular Hemoglobin Concent 34 g/dL (31-37) Red Cell Distribution Width 13.5 % (11.5-14.5) Platelet Count 137 x10^3/uL (140-400) Neutrophils (%) (Auto) 44 % (31-73) Lymphocytes (%) (Auto) 42 % (24-48) Monocytes (%) (Auto) 9 % (0-9) Eosinophils (%) (Auto) 4 % (0-3) Basophils (%) (Auto) 1 % (0-3) Neutrophils # (Auto) 3.2 x10^3uL (1.8-7.7) Lymphocytes # (Auto) 3.0 x10^3/uL (1.0-4.8) Monocytes # (Auto) 0.7 x10^3/uL (0.0-1.1) Eosinophils # (Auto) 0.3 x10^3/uL (0.0-0.7) Basophils # (Auto) 0.1 x10^3/uL (0.0-0.2) Sodium Level 144 mmol/L (136-145) Potassium Level 3.7 mmol/L (3.5-5.1) Chloride Level 106 mmol/L (98-107) Carbon Dioxide Level 31 mmol/L (21-32) Anion Gap 7 (6-14) Blood Urea Nitrogen 16 mg/dL (7-20) Creatinine 0.7 mg/dL (0.6-1.0) Estimated GFR (Cockcroft-Gault) 86.6 Glucose Level 109 mg/dL (70-99) Calcium Level 9.0 mg/dL (8.5-10.1) Triglycerides Level 136 mg/dL (0-150) Cholesterol Level 223 mg/dL (0-200) LDL Cholesterol, Calculated 128 mg/dL (0-100) VLDL Cholesterol, Calculated 27 mg/dL (0-40) Non-HDL Cholesterol Calculated 155 mg/dL (0-129) HDL Cholesterol 68 mg/dL (40-60) Cholesterol/HDL Ratio 3.3 Medications Current Medications Nitroglycerin (Nitrostat) 0.4 mg PRN Q5MIN PRN SL CHEST PAIN Last administered on 11/09/16 11:32; Start 11/09/16 at 11:00 Aspirin (Children'S Aspirin) 81 mg 1X ONCE PO Last administered on 11/09/16 11:01; Start 11/09/16 at 11:00; Stop 11/09/16 at 11:01; Status DC Iohexol (Omnipaque 300 Mg/ml) 75 ml 1X ONCE IV ; Start 11/09/16 at 12:00; Stop 11/09/16 at 12:01; Status DC Info (Do NOT chart on this entry -- for MONITORING) 1 each PRN DAILY PRN MC SEE COMMENTS; Start 11/09/16 at 12:15; Stop 11/11/16 at 12:14 Fentanyl Citrate (Fentanyl 2ml Vial) 50 mcg PRN Q1HR PRN IV PAIN; Start at 12:15; Stop 11/10/16 at 12:14; Status DC Nitroglycerin (Nitrostat) 0.4 mg PRN Q5MIN PRN SL CHEST PAIN; Start 11/09/16 at 12:15; Stop 11/10/16 at 12:14; Status UNV Amlodipine Besylate (Norvasc) 5 mg 1X ONCE PO Last administered on 11/09/16 17:14; Start 11/09/16 at 16:00; Stop 11/09/16 at 16:01; Status DC Amlodipine Besylate (Norvasc) 10 mg DAILY PO Last administered on 11/10/16 09: 28; Start 11/10/16 at 09:00 Hydralazine HCl (Apresoline) 10 mg PRN Q4HRS PRN IVP ELEVATED BP, SEE COMMENTS ; Start 11/09/16 at 16:00 Alprazolam (Xanax) 0.25 mg 1X ONCE PO Last administered on 11/09/16 17:13; Start 11/09/16 at 17:00; Stop 11/09/16 at 17:01; Status DC Amlodipine Besylate (Norvasc) 5 mg DAILY PO ; Start 11/10/16 at 09:00; Status UNV Diphenhydramine HCl (Benadryl) 25 mg DAILY PO Last administered on 11/10/16 09 :27; Start 11/10/16 at 09:00 Oxybutynin Chloride (Ditropan) 5 mg DAILY PO Last administered on 11/10/16 09: 28; Start 11/10/16 at 09:00 Tramadol HCl (Ultram) 50 mg BID PO Last administered on 11/10/16 09:27; Start 11/09/16 at 21:00 Gabapentin (Neurontin) 300 mg QHS PO Last administered on 11/09/16 20:06; Start 11/09/16 at 21:00 Meloxicam (Mobic) 15 mg DAILY PO Last administered on 11/10/16 09:29; Start at 09:00 Non-Formulary Medication 2 each BID PO ; Start 11/09/16 at 21:00; Status UNV Non-Formulary Medication 100 mg PRN PO ; Start 11/09/16 at 17:00; Status UNV Acetaminophen (Tylenol) 650 mg PRN Q6HRS PRN PO headache Last administered on 18:44; Start 11/09/16 at 18:45 Lorazepam (Ativan) 0.5 mg PRN Q8HRS PRN PO ANXIETY / AGITATION Last administered on 11/10/16 10:47; Start 11/09/16 at 19:30 Acetaminophen (Tylenol) 325 mg PRN Q6HRS PRN PO MILD PAIN / TEMP; Start at 19:45 Acetaminophen/ Hydrocodone Bitart (Lortab 5/325) 1 tab PRN Q6HRS PRN PO MODERATE TO SEVERE PAIN Last administered on 11/10/16 10:47; Start 11/09/16 at 19:45 Hydralazine HCl (Apresoline) 10 mg PRN Q4HRS PRN IVP ELEVATED BP, SEE COMMENTS ; Start 11/09/16 at 19:45 Ondansetron HCl (Zofran) 4 mg PRN Q8HRS PRN IV NAUSEA/VOMITING; Start 11/09/16 at 19:45 Albuterol Sulfate (Ventolin Neb Soln) 2.5 mg PRN Q4HRS PRN NEB SHORTNESS OF BREATH; Start 11/09/16 at 19:45 Pentosan Polysulfate Sodium (Elmiron) 100 mg TIDBFRMEAL PO ; Start 11/09/16 at 21:00; Status UNV Pentosan Polysulfate Sodium (Elmiron) 100 mg 1X ONCE PO Last administered on 21:45; Start 11/09/16 at 22:00; Stop 11/09/16 at 22:01; Status DC Pantoprazole Sodium (Protonix) 40 mg DAILYAC PO Last administered on 11/10/16 10:48; Start 11/10/16 at 11:00 Non-Formulary Medication 20 mg TIDWMEALHC PO ; Start 11/10/16 at 12:00; Status UNV Atorvastatin Calcium (Lipitor) 20 mg QHS PO ; Start 11/10/16 at 21:00 Active Scripts Active [place] 5-325 Tablet (Acetaminophen/Hydrocodone Bitart) 1 Each Tablet 1 Tab PO PRN Q6HRS PRN Reported Prilosec Otc (Omeprazole Magnesium) 20 Mg Tablet.dr 20 Mg PO TIDWMEALHC Prilosec Otc (Omeprazole Magnesium) 20 Mg Tablet.dr 1 Tab PO DAILY Amlodipine Besylate 5 Mg Tablet 5 Mg PO DAILY Valerian Root 100 Mg Capsule 100 Mg PO PRN Tramadol Hcl 50 Mg Tablet 1 Tab PO BID Oxybutynin Chloride 5 Mg Tablet 5 Mg PO DAILY Benadryl (Diphenhydramine Hcl) 25 Mg Capsule 25 Mg PO Benadryl (Diphenhydramine Hcl) 25 Mg Capsule 1 Cap PO DAILY Hyophen Tablet (Methenam/Me Blue/Ba/Salicy/Hyo) 1 Each Tablet 2 Each PO BID Meloxicam 15 Mg Tablet 1 Tab PO QHS Hyophen Tablet (Methenam/Me Blue/Ba/Salicy/Hyo) 1 Each Tablet 2 Each PO BID Gabapentin 300 Mg Capsule 300 Mg PO QHS Vitals/I & O Vital Sign - Last 24 Hours 11/09/16 11/09/16 11/09/16 11/09/16 13:20 15:30 17:14 19:35 Temp 98.0 97.9 97.7 98.0 97.9 97.7 Pulse 55 63 63 67 Resp 18 18 18 B/P (MAP) 174/78 (110) 148/83 (104) 148/83 140/89 (106) Pulse Ox 98 97 93 O2 Delivery Room Air Room Air Room Air 11/09/16 11/09/16 11/09/16 11/09/16 20:00 20:06 20:06 21:06 Resp 18 18 20 O2 Delivery Room Air Room Air Room Air 11/09/16 11/09/16 11/10/16 11/10/16 21:06 23:52 03:40 07:45 Temp 98.0 97.9 97.6 98.0 97.9 97.6 Pulse 63 73 59 Resp 20 16 16 16 B/P (MAP) 107/49 (68) 136/85 (102) 150/82 (104) Pulse Ox 96 97 98 O2 Delivery Room Air Room Air Room Air 11/10/16 11/10/16 11/10/16 11/10/16 08:41 09:27 09:28 10:38 Pulse 59 B/P (MAP) 150/82 Pulse Ox 98 98 O2 Delivery Room Air Room Air Room Air 11/10/16 11/10/16 11/10/16 10:47 11:00 11:49 Temp 97.9 97.9 Pulse 63 Resp 18 B/P (MAP) 166/94 (118) Pulse Ox 98 94 94 O2 Delivery Room Air Room Air Room Air Intake and Output 11/09/16 11/09/16 11/10/16 15:00 23:00 07:00 Intake Total 200 ml 300 ml Balance 200 ml 300 ml ZAIRE PHAN MD Nov 10, 2016 12:51
--- NOTE | 2016-11-10 13:46 | RAD ---
Indication abnormal thyroid function tests. Grayscale images were obtained. No prior imaging of the thyroid is available. The right lobe of the thyroid measures 3.2 x 1.5 x 1.2 cm. The right lobe is slightly heterogeneous but no dominant nodule is seen. The isthmus appears unremarkable. The left lobe of the thyroid measures 3.4 x 1.3 cm. There is a mixed echogenic nodule measuring 8 mm in the inferior aspect of the left lobe of the thyroid. IMPRESSION: Subcentimeter nodule left lobe of the thyroid
[2016-11-10 15:00] VITALS: BP 115/73
[2016-11-10 19:00] VITALS: BP 145/83
[2016-11-10] MEDS ORDERED: ATORVASTATIN CALCIUM 20 MG TABLET PO SCH (21:00)
[2016-11-10] MEDS: GABAPENTIN 300 MG CAPSULE. PO SCH (21:13)
[2016-11-10 23:30] VITALS: BP 122/74
[2016-11-11 03:15] VITALS: BP 111/74
[2016-11-11 07:00] VITALS: BP 138/89
[2016-11-11] MEDS ORDERED: PENTOSAN POLYSULFATE SODIUM 100 MG CAPSULE. ONE (07:30)
[2016-11-11] MEDS: PENTOSAN POLYSULFATE SODIUM 100 MG CAPSULE. PO SCH ×2 (07:30→11:30)
--- NOTE | 2016-11-11 09:25 | PDOC ---
PROGRESS NOTES Chief Complaint Chief Complaint cc: chest pain A/P 1. Atypical CP 2 Uncontrolled hypertension: much better 3. Anxiety 4. Subclinical hyperthyroidism: US 5. HLP Plan stess test today xanax for anxiety follow up with PCP for Thyroid swellings DC plans based on stress results Vitals Vitals Vital Signs Date Time Temp Pulse Resp B/P (MAP) Pulse Ox O2 Delivery O2 Flow Rate FiO2 11/11/16 08:35 Room Air 11/11/16 07:00 98.0 74 16 138/89 (105) 97 98.0 Physical Exam General: Alert, Oriented X3, Cooperative, No acute distress Heart: Regular rate, Normal S1, Normal S2, No murmurs Lungs: Clear Abdomen: Soft, No tenderness Extremities: No edema, Normal pulses Skin: No breakdown, No significant lesion Assessment and Plan Assessmemt and Plan Problems Medical Problems: (1) Chest pain Status: Acute Problems: Comment Review of Relevant I have reviewed the following items alfonzo (where applicable) has been applied. Labs Laboratory Tests Test 11/09/16 10:50 11/09/16 18:35 11/10/16 02:20 White Blood Count 6.6 x10^3/uL (4.0-11.0) 7.2 x10^3/uL (4.0-11.0) Red Blood Count 4.32 x10^6/uL (3.50-5.40) 4.16 x10^6/uL (3.50-5.40) Hemoglobin 12.5 g/dL (12.0-15.5) 12.3 g/dL (12.0-15.5) Hematocrit 37.5 % (36.0-47.0) 36.5 % (36.0-47.0) Mean Corpuscular Volume 87 fL (79-100) 88 fL (79-100) Mean Corpuscular Hemoglobin 29 pg (25-35) 30 pg (25-35) Mean Corpuscular Hemoglobin Concent 33 g/dL (31-37) 34 g/dL (31-37) Red Cell Distribution Width 13.5 % (11.5-14.5) 13.5 % (11.5-14.5) Platelet Count 130 x10^3/uL (140-400) 137 x10^3/uL (140-400) Neutrophils (%) (Auto) 56 % (31-73) 44 % (31-73) Lymphocytes (%) (Auto) 32 % (24-48) 42 % (24-48) Monocytes (%) (Auto) 9 % (0-9) 9 % (0-9) Eosinophils (%) (Auto) 2 % (0-3) 4 % (0-3) Basophils (%) (Auto) 1 % (0-3) 1 % (0-3) Neutrophils # (Auto) 3.7 x10^3uL (1.8-7.7) 3.2 x10^3uL (1.8-7.7) Lymphocytes # (Auto) 2.1 x10^3/uL (1.0-4.8) 3.0 x10^3/uL (1.0-4.8) Monocytes # (Auto) 0.6 x10^3/uL (0.0-1.1) 0.7 x10^3/uL (0.0-1.1) Eosinophils # (Auto) 0.2 x10^3/uL (0.0-0.7) 0.3 x10^3/uL (0.0-0.7) Basophils # (Auto) 0.1 x10^3/uL (0.0-0.2) 0.1 x10^3/uL (0.0-0.2) Sodium Level 143 mmol/L (136-145) 144 mmol/L (136-145) Potassium Level 4.2 mmol/L (3.5-5.1) 3.7 mmol/L (3.5-5.1) Chloride Level 105 mmol/L (98-107) 106 mmol/L (98-107) Carbon Dioxide Level 30 mmol/L (21-32) 31 mmol/L (21-32) Anion Gap 8 (6-14) 7 (6-14) Blood Urea Nitrogen 17 mg/dL (7-20) 16 mg/dL (7-20) Creatinine 0.7 mg/dL (0.6-1.0) 0.7 mg/dL (0.6-1.0) Estimated GFR (Cockcroft-Gault) 86.6 86.6 BUN/Creatinine Ratio 24 (6-20) Glucose Level 102 mg/dL (70-99) 109 mg/dL (70-99) Calcium Level 8.8 mg/dL (8.5-10.1) 9.0 mg/dL (8.5-10.1) Total Bilirubin 0.3 mg/dL (0.2-1.0) Aspartate Amino Transf (AST/SGOT) 17 U/L (15-37) Alanine Aminotransferase (ALT/SGPT) 22 U/L (14-59) Alkaline Phosphatase 99 U/L (46-116) Troponin I Quantitative < 0.017 ng/mL (0.000-0.055) < 0.017 ng/mL (0.000-0.055) < 0.017 ng/mL (0.000-0.055) Total Protein 7.2 g/dL (6.4-8.2) Albumin 3.9 g/dL (3.4-5.0) Albumin/Globulin Ratio 1.2 (1.0-1.7) Thyroid Stimulating Hormone (TSH) 0.025 uIU/mL (0.358-3.74) Triglycerides Level 136 mg/dL (0-150) Cholesterol Level 223 mg/dL (0-200) LDL Cholesterol, Calculated 128 mg/dL (0-100) VLDL Cholesterol, Calculated 27 mg/dL (0-40) Non-HDL Cholesterol Calculated 155 mg/dL (0-129) HDL Cholesterol 68 mg/dL (40-60) Cholesterol/HDL Ratio 3.3 Free Thyroxine 1.04 ng/dL (0.76-1.46) Medications Current Medications Nitroglycerin (Nitrostat) 0.4 mg PRN Q5MIN PRN SL CHEST PAIN Last administered on 11/09/16 11:32; Start 11/09/16 at 11:00 Aspirin (Children'S Aspirin) 81 mg 1X ONCE PO Last administered on 11/09/16 11:01; Start 11/09/16 at 11:00; Stop 11/09/16 at 11:01; Status DC Iohexol (Omnipaque 300 Mg/ml) 75 ml 1X ONCE IV ; Start 11/09/16 at 12:00; Stop 11/09/16 at 12:01; Status DC Info (Do NOT chart on this entry -- for MONITORING) 1 each PRN DAILY PRN MC SEE COMMENTS; Start 11/09/16 at 12:15; Stop 11/11/16 at 12:14 Fentanyl Citrate (Fentanyl 2ml Vial) 50 mcg PRN Q1HR PRN IV PAIN; Start at 12:15; Stop 11/10/16 at 12:14; Status DC Nitroglycerin (Nitrostat) 0.4 mg PRN Q5MIN PRN SL CHEST PAIN; Start 11/09/16 at 12:15; Stop 11/10/16 at 12:14; Status UNV Amlodipine Besylate (Norvasc) 5 mg 1X ONCE PO Last administered on 11/09/16 17:14; Start 11/09/16 at 16:00; Stop 11/09/16 at 16:01; Status DC Amlodipine Besylate (Norvasc) 10 mg DAILY PO Last administered on 11/10/16 09: 28; Start 11/10/16 at 09:00 Hydralazine HCl (Apresoline) 10 mg PRN Q4HRS PRN IVP ELEVATED BP, SEE COMMENTS ; Start 11/09/16 at 16:00 Alprazolam (Xanax) 0.25 mg 1X ONCE PO Last administered on 11/09/16 17:13; Start 11/09/16 at 17:00; Stop 11/09/16 at 17:01; Status DC Amlodipine Besylate (Norvasc) 5 mg DAILY PO ; Start 11/10/16 at 09:00; Status UNV Diphenhydramine HCl (Benadryl) 25 mg DAILY PO Last administered on 11/10/16 09 :27; Start 11/10/16 at 09:00 Oxybutynin Chloride (Ditropan) 5 mg DAILY PO Last administered on 11/10/16 09: 28; Start 11/10/16 at 09:00 Tramadol HCl (Ultram) 50 mg BID PO Last administered on 11/10/16 21:14; Start 11/09/16 at 21:00 Gabapentin (Neurontin) 300 mg QHS PO Last administered on 11/10/16 21:13; Start 11/09/16 at 21:00 Meloxicam (Mobic) 15 mg DAILY PO Last administered on 11/10/16 09:29; Start at 09:00 Non-Formulary Medication 2 each BID PO ; Start 11/09/16 at 21:00; Status UNV Non-Formulary Medication 100 mg PRN PO ; Start 11/09/16 at 17:00; Status UNV Acetaminophen (Tylenol) 650 mg PRN Q6HRS PRN PO headache Last administered on 18:44; Start 11/09/16 at 18:45 Lorazepam (Ativan) 0.5 mg PRN Q8HRS PRN PO ANXIETY / AGITATION Last administered on 11/10/16 21:13; Start 11/09/16 at 19:30 Acetaminophen (Tylenol) 325 mg PRN Q6HRS PRN PO MILD PAIN / TEMP; Start at 19:45 Acetaminophen/ Hydrocodone Bitart (Lortab 5/325) 1 tab PRN Q6HRS PRN PO MODERATE TO SEVERE PAIN Last administered on 11/10/16 10:47; Start 11/09/16 at 19:45 Hydralazine HCl (Apresoline) 10 mg PRN Q4HRS PRN IVP ELEVATED BP, SEE COMMENTS ; Start 11/09/16 at 19:45 Ondansetron HCl (Zofran) 4 mg PRN Q8HRS PRN IV NAUSEA/VOMITING; Start 11/09/16 at 19:45 Albuterol Sulfate (Ventolin Neb Soln) 2.5 mg PRN Q4HRS PRN NEB SHORTNESS OF BREATH; Start 11/09/16 at 19:45 Pentosan Polysulfate Sodium (Elmiron) 100 mg TIDBFRMEAL PO ; Start 11/09/16 at 21:00 Pentosan Polysulfate Sodium (Elmiron) 100 mg 1X ONCE PO Last administered on 21:45; Start 11/09/16 at 22:00; Stop 11/09/16 at 22:01; Status DC Pantoprazole Sodium (Protonix) 40 mg DAILYAC PO Last administered on 11/10/16 10:48; Start 11/10/16 at 11:00 Non-Formulary Medication 20 mg TIDWMEALHC PO ; Start 11/10/16 at 12:00; Status UNV Atorvastatin Calcium (Lipitor) 20 mg QHS PO ; Start 11/10/16 at 21:00 Regadenoson (Lexiscan) 0.4 mg 1X ONCE IV ; Start 11/11/16 at 09:30; Stop at 09:31; Status UNV Active Scripts Active [place] 5-325 Tablet (Acetaminophen/Hydrocodone Bitart) 1 Each Tablet 1 Tab PO PRN Q6HRS PRN Reported Prilosec Otc (Omeprazole Magnesium) 20 Mg Tablet.dr 20 Mg PO TIDWMEALHC Prilosec Otc (Omeprazole Magnesium) 20 Mg Tablet.dr 1 Tab PO DAILY Amlodipine Besylate 5 Mg Tablet 5 Mg PO DAILY Valerian Root 100 Mg Capsule 100 Mg PO PRN Tramadol Hcl 50 Mg Tablet 1 Tab PO BID Oxybutynin Chloride 5 Mg Tablet 5 Mg PO DAILY Benadryl (Diphenhydramine Hcl) 25 Mg Capsule 25 Mg PO Benadryl (Diphenhydramine Hcl) 25 Mg Capsule 1 Cap PO DAILY Hyophen Tablet (Methenam/Me Blue/Ba/Salicy/Hyo) 1 Each Tablet 2 Each PO BID Meloxicam 15 Mg Tablet 1 Tab PO QHS Hyophen Tablet (Methenam/Me Blue/Ba/Salicy/Hyo) 1 Each Tablet 2 Each PO BID Gabapentin 300 Mg Capsule 300 Mg PO QHS Vitals/I & O Vital Sign - Last 24 Hours 11/10/16 11/10/16 11/10/16 11/10/16 09:27 09:28 10:38 10:47 Pulse 59 B/P (MAP) 150/82 Pulse Ox 98 98 98 O2 Delivery Room Air Room Air Room Air 11/10/16 11/10/16 11/10/16 11/10/16 11:00 11:49 13:35 15:00 Temp 97.9 98.0 97.9 98.0 Pulse 63 63 Resp 18 18 B/P (MAP) 166/94 (118) 115/73 (87) Pulse Ox 94 94 98 96 O2 Delivery Room Air Room Air Room Air Room Air 11/10/16 11/10/16 11/10/16 11/10/16 19:00 20:12 21:14 23:30 Temp 97.7 97.4 97.7 97.4 Pulse 59 61 Resp 18 18 17 B/P (MAP) 145/83 (103) 122/74 (90) Pulse Ox 94 94 O2 Delivery Room Air Room Air Room Air Room Air 11/11/16 11/11/16 11/11/16 03:15 07:00 08:35 Temp 97.7 98.0 97.7 98.0 Pulse 53 74 Resp 16 16 B/P (MAP) 111/74 (86) 138/89 (105) Pulse Ox 94 97 O2 Delivery Room Air Room Air Room Air Intake and Output 11/10/16 11/10/16 11/11/16 15:00 23:00 07:00 Intake Total 120 ml 300 ml Balance 120 ml 300 ml ZAIRE PHAN MD Nov 11, 2016 09:25
[2016-11-11] MEDS ORDERED: REGADENOSON 0.4 MG/5 ML DISP.SYRIN. IV ONE (09:30)
[2016-11-11] MEDS: PANTOPRAZOLE 40 MG TABLET.DR. PO SCH (10:25)
[2016-11-11] MEDS: diphenhydrAMINE HCL 25 MG CAPSULE PO SCH (10:26)
[2016-11-11] MEDS: OXYBUTYNIN CHLORIDE 5 MG TABLET PO SCH (10:26)
[2016-11-11] MEDS: MELOXICAM 7.5 MG TABLET PO SCH (10:29)
[2016-11-11 11:00] VITALS: BP 143/79
[2016-11-11] MEDS: traMADol 50 MG TABLET PO SCH (11:58)
[2016-11-11] MEDS: amLODIPine BESYLATE 10 MG TABLET PO SCH (11:59)
[2016-11-11] MEDS: LORazepam 0.5 MG TABLET PO PRN (12:04)
--- NOTE | 2016-11-11 12:53 | PDOC3 ---
Discharge Summary* Admitting Diagnosis Problems Medical Problems: (1) Chest pain Status: Acute Problems: Final Diagnosis Problems Medical Problems: (1) Chest pain Status: Acute Brief Hospital Course Ms. Hyman is a 56 old [sex] who presented with [ ] Scheduled Amlodipine Besylate (Amlodipine Besylate), 5 MG PO DAILY, (Reported) Diphenhydramine Hcl (Benadryl), 1 CAP PO DAILY, (Reported) Gabapentin (Gabapentin), 300 MG PO QHS, (Reported) Meloxicam (Meloxicam), 1 TAB PO QHS, (Reported) [place]/Me Blue/Ba/Salicy/Hyo (Hyophen Tablet), 2 EACH PO BID, (Reported) [place]/Me Blue/Ba/Salicy/Hyo (Hyophen Tablet), 2 EACH PO BID, (Reported) Omeprazole Magnesium (Prilosec Otc), 1 TAB PO DAILY, (Reported) Omeprazole Magnesium (Prilosec Otc), 20 MG PO TIDWMEALHC, (Reported) Oxybutynin Chloride (Oxybutynin Chloride), 5 MG PO DAILY, (Reported) Tramadol Hcl (Tramadol Hcl), 1 TAB PO BID, (Reported) Valerian Root (Valerian Root), 100 MG PO PRN, (Reported) Scheduled PRN Hydrocodone/Apap 5-325 ([place] 5-325 Tablet), 1 TAB PO PRN Q6HRS PRN for PAIN Miscellaneous Medications Diphenhydramine Hcl (Benadryl), 25 MG PO, (Reported) Time Spent Total time spent with patient [] minutes for coordination of care, counseling, and education. ZAIRE PHAN MD Nov 11, 2016 12:53
[2016-11-11 15:00] VITALS: BP 129/74
[2016-11-11] MEDS: HYDROcodone/APAP 5/325MG 1 TAB TABLET PO PRN (17:10)
[2016-11-11 18:18] VITALS: BP 137/84
--- NOTE | 2016-11-12 07:59 | RAD ---
APPROVED REPORT Test Type: Pharmacological Stress Nurse/Tech: oscar juarez Test Indications: CHEST PAIN Cardiac History: HTN, SEE EHR Medications: SEE EHR Medical History: NONE STATED, SEE EHR Resting ECG: SR Resting Heart Rate: 63 bpm Resting Blood Pressure: 163/97mmHg Pretest Chest Pain: No chest pain Nurse/Tech Notes NO SIGNS OF RESPIRATORY DISTRESS, NSR ON INITIAL EKG. Consent: The procedure was explained to the patient in lay terms. Informed consent was witnessed. Italo eout was entered into [employer]. History and Stress Test performed by SHANNEN Higginbotham Pharm. Details Pharmacologic stress testing was performed using 0.4mg per 5ml of regadenoson given intravenously ove r 7-10 seconds. Stress Symptoms HEADACHE, BODY ACHES, NAUSEA, FACIAL FLUSHING. POST EXERCISE Reason for Termination: Infusion complete Max HR: 112 bpm Max Blood Pressure: 141/82mmHg Chest Pain: No. Arrhythmia: No. ST Change: No. INTERPRETATION Stress EKG Conclusion: No evidence of stress induced EKG changes. Imaging Protocol IMAGE PROTOCOL: Rest Tc-99m/stress Tc-99m 1 day Rest: Stress: Viability: Radiopharm.Tc99m [id number] Sestamibi Dose11.6mCi 33mCi Duration 15min. 10min. Img Date 11/11/2016 11/11/2016 Inj-Img [id number]. 60min. Rest Admin Site:IV - Left AntecubitalAdministrator:SHANNEN Higginbotham Stress Admin Site: IV - Left AntecubitalAdministrator: SHANNEN Higginbotham STRESS DATA End Diast. Vol.89.0mlAv. Heart Rate65.0bpm End Syst. Vol.30.0mlCO Index BSA0.0L/min Myocardial Resr115.0gEject. Nyudycoc93.0% Stress Rates Pk. Fill Rate2.70EDV/secLVtime Pk. Fill 161.25msec Pk. Empty Rate3.68ESV/secLVtime Pk. Rtmvx853.96msec 04/24 Pk. Fill1.62EDV/sec Stress Scores Regional WT1.00Summed WT13.00 Regional WM0.00Summed WM1.00 The rest and stress images show normal perfusion, normal contraction and thickening. LV Perf. Quant 17 Seg. SSS1.00 17 Seg. SRS5.00 17 Seg. SDS0.00 Stress Defect Extent (% LAD)0.00Rest Defect Extent (% LAD)1.90Rev. Defect Extent (% LAD)0.00 Stress Defect Extent (% LCX) 3.80Rest Defect Extent (% LCX)16.30Rev. Defect Extent (% LCX)0.00 Stress Defect Extent (% RCA)0.00Rest Defect Extent (% RCA)4.40Rev. Defect Extent (% RCA)0.00 Stress Defect Extent (% SARAH)3.50Rest Defect Extent (% SARAH)8.70Rev. Defect Extent (% SARAH)0.00 Other Information Quality:Average Risk Assessment: Low Risk Conclusion 1. No evidence of EKG changes with stress testing. 2. Normal perfusion at stress/rest. 3. Low risk study. 4. EF > 60%.
== END 2016-11-11 20:13 | disposition home or self-care (01) | DRG 313 ==
LOC: ER 10:33 → 2 NORTH 10:57
PROVIDERS: ADMIT Internal Medicine; ATTEND Internal Medicine
DX: R07.89 Other chest pain (principal); D69.3 Immune thrombocytopenic purpura; E05.90 Thyrotoxicosis, unspecified without thyrotoxic crisis or storm; E78.5 Hyperlipidemia, unspecified; F41.9 Anxiety disorder, unspecified; I10 Essential (primary) hypertension; Z90.49 Acquired absence of other specified parts of digestive tract; Z90.710 Acquired absence of both cervix and uterus; Z90.89 Acquired absence of other organs; K21.9 Gastro-esophageal reflux disease without esophagitis; Z88.1 Allergy status to other antibiotic agents; Z88.5 Allergy status to narcotic agent; Z88.2 Allergy status to sulfonamides; Z88.8 Allergy status to other drugs, medicaments and biological substances; Z71.89 Other specified counseling
CPT/HCPCS: 36415; 71010; 76536; 78452; 78582; 80048; 80053; 80061; 84439; 84443; 84484; 85027; 93005; 93017; 94250; 96374; 96376; A9500; A9540; A9558; J2785; Q0163; 99285-25